=== PATIENT | male | born 1950 | race Caucasian/White ===

== ENCOUNTER → 2018-07-27 09:22 | Outpatient (CLI) | payer MEDICARE, OTHER, SELFPAY ==
[2018-07-27 12:21] LABS: Hematocrit 43.9 % (40-54); Hemoglobin 15.2 g/dl (13.0-16.5); Mean Corp Hgb Conc 34.6 g/gl (32-36); Mean Corpuscular Volume 83.8 fL (80-94); Platelet Count 244 K/mm3 (150-450); RBC Distribution Width CV 12.9 % (11.6-14.6); RBC Distribution Width SD 39.4 fl (35.1-43.9); Red Blood Count 5.24 M/mm3 (4.6-6.2); White Blood Count 5.1 K/mm3 (4.4-11.0)
[2018-07-27 12:51] LABS: Anion Gap 9 (5-15); BUN 13 mg/dL (7-18); BUN/Creat Ratio 13.2 RATIO (10-20); Calcium,Total 8.9 mg/dL (8.5-10.1); Chloride 107 mmol/L (98-107); Cholesterol 186 mg/dL (200); Creatinine, Serum 0.99 mg/dL (0.70-1.30); EST Glomerular Filtration Rate 80 mL/min (>60); Est Glom Filt Rate - Afr Amer 97 mL/min (>60); Glucose 85 mg/dL (74-106); High Density Lipoprotein 59 mg/dL; Sodium Level 138 mmol/L (136-145); Triglycerides 109 mg/dL; Very Low Density Lipoprotein 22 mg/dL (5-40)
[2018-07-27 15:02] LABS: Basophil% 0.2 % (0-1); Eosinophils% 1.2 % (0-5); Lymphocyte % 36.2 % (19-41); Neutrophil % 54.2 % (47-70)
[2018-07-27 15:03] LABS: Absolute Lymphocyte Count 1.85 X10^3/ul (0.83-4.51); Absolute Neutrophil Count 2.8 X10^3/uL (2.0-7.7); Basophil# 0.01 X10^3/uL; Eosinophil# 0.06 X10^3/uL; Lymphocyte # 1.85 X10^3/ul (4.0); Monocyte# 0.41 X10^3/uL; POSITIVE COUNT NO; POSITIVE DIFFERENTIAL NO; POSITIVE MORPHOLOGY NO
--- OUTSIDE RECORDS SUMMARY | 2018-09-30 23:04 | XMS RPT_ITS ---
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 / Z80.0(ICD-10) 04/20/2018 Working Otitis media, NA Active [facility] diagnosis unspecified, [facility] unspecified ear / H66.90(ICD-10) 09/14/2017 Admitting Unknown / GRACE RAYO Active [facility] diagnosis UNK(Unknown) [facility] 09/14/2017 Working Unknown / GRACE RAYO Active [facility] diagnosis UNK(Unknown) [facility] PROCEDURES PROCEDURES No Procedure Records FoundRESULTS RESULTS PSA,TOTAL - ANNUAL Collected: 08/01/2018 Status: F Source: [place] SCREEN 9:53 AM [facility] REPOSITORY TYPE CODE TESTS RESULT OUT OF REFERENCE UNITS RANGE LAB L501.9910 0.00-4.00 ng/mL High PSA,TOT 4.88 SCREEN Result Comment: This test was performed using the TPSA assay method for the eKonnekt chemistry system. Values obtained with different assay methods cannot be used interchangably. When changing PSA assays in the course of monitoring a patient, additional sequential testing should be carried out to confirm baseline values. Performed By: #### L501.9910 #### [facility] [address] [place], [place], [id number] CBC-COMPLETE BLOOD CNT Collected: 07/27/2018 Status: F Source: NINA NO DIFF 9:27 AM [facility] REPOSITORY TYPE CODE TESTS RESULT OUT OF RANGE REFERENCE UNITS LAB L100.1000 4.4-11.0 K/mm3 Normal WBC 5.1 LAB L100.1200 4.6-6.2 M/mm3 Normal RBC 5.24 LAB L100.1300 13.0-16.5 g/dl Normal HGB 15.2 LAB L100.1400 40-54 % Normal HCT 43.9 LAB L100.1500 80-94 fL Normal MCV 83.8 LAB L100.1600 27.0-32.0 pg Normal MCH 29.0 LAB L100.1700 32-36 g/gl Normal MCHC 34.6 LAB L100.1810 11.6-14.6 % Normal RDW CV 12.9 LAB L100.1820 35.1-43.9 fl Normal RDW SD 39.4 LAB L100.1900 150-450 K/mm3 Normal PLT 244 LAB L100.2000 6.2-12.0 fl Normal MPV 10.0 Performed By: #### L100.0500, L500.2500, L500.4100 #### [facility] [address] [place], [place], [id number] BASIC METABOLIC Collected: 07/27/2018 Status: F Source: NINA PROFILE (BMP) 9:27 AM [facility] REPOSITORY TYPE CODE TESTS RESULT OUT OF RANGE REFERENCE UNITS LAB L501.0100 74-106 mg/dL Normal GLU 85 Result Comment: Please note revised GLUCOSE reference range effective 2017. LAB L501.1000 7-18 mg/dL Normal BUN 13 LAB L501.1100 0.70-1.30 mg/dL Normal CREAT,SERUM 0.99 Result Comment: The validity of the calculated GFR AND GFRAA in patients over 70 years has not been determined. Clinical correlation is essential. LAB L501.1110 >60 mL/min Normal EST GFR 80 Result Comment: Non- GFR Calc LAB L501.1115 >60 mL/min Normal EST GFR - AA 97 Result Comment: GFR Calc LAB L501.1300 10-20 RATIO Normal BUN/CRE 13.2 LAB L501.2200 8.5-10.1 mg/dL CA Normal 8.9 LAB L501.5300 136-145 mmol/L NA Normal 138 LAB L501.5600 3.5-5.1 mmol/L K Normal 4.0 LAB L501.5900 98-107 mmol/L CL Normal 107 LAB L501.6100 21.0-32.0 mmol/L Normal CO2 22.0 LAB L501.6200 5-15 Normal GAP 9 Performed By: #### L100.0500, L500.2500, L500.4100 #### [facility] [address] [place], [address] LIPID PROFILE Collected: 07/27/2018 Status: F Source: [place] 9:27 AM [facility] REPOSITORY TYPE CODE TESTS RESULT OUT OF RANGE REFERENCE UNITS LAB L501.4900 200 mg/dL Normal CHOL 186 Result Comment: <200 mg/dL Desirable 200-240 mg/dL Borderline >240 mg/dL High Risk LAB L501.5000 mg/dL Normal TRIG 109 Result Comment: The drugs N-Acetylcysteine and Metamizole may falsely depress this assay. Serum Triglycerides Reference Interval Normal <150 mg/dL Borderline high 150 - 199 mg/dL High 200 - 499 mg/dL Very High > or = 500 mg/dL LAB L501.6400 mg/dL Normal HDL 59 Result Comment: The drugs N-Acetylcysteine and Metamizole may falsely depress this assay. Reference Range HDL <40 mg/dL Low HDL Cholesterol HDL >or= 60 mg/dL High HDL Cholesterol LAB L501.6500 0-130 mg/dL Normal LDL 105 LAB L501.6600 5-40 mg/dL Normal VLDL 22 Performed By: #### L100.0500, L500.2500, L500.4100 #### [facility] [address] [place], [address] CBC W/DIFF, AUTOMATED Collected: 07/27/2018 Status: F Source: NINA 9:27 AM [facility] REPOSITORY Order Comment: NEEDS CBCD NOT JUST CBC TYPE CODE TESTS RESULT OUT OF RANGE REFERENCE UNITS LAB L100.1000 4.4-11.0 K/mm3 Normal WBC 5.1 LAB L100.1200 4.6-6.2 M/mm3 Normal RBC 5.24 LAB L100.1300 13.0-16.5 g/dl Normal HGB 15.2 LAB L100.1400 40-54 % Normal HCT 43.9 LAB L100.1500 80-94 fL Normal MCV 83.8 LAB L100.1600 27.0-32.0 pg Normal MCH 29.0 LAB L100.1700 32-36 g/gl Normal MCHC 34.6 LAB L100.1810 11.6-14.6 % Normal RDW CV 12.9 LAB L100.1820 35.1-43.9 fl Normal RDW SD 39.4 LAB L100.1900 150-450 K/mm3 Normal PLT 244 LAB L100.2000 6.2-12.0 fl Normal MPV 10.0 LAB L100.2100 47-70 % Normal NEUT% 54.2 LAB L100.2200 19-41 % Normal LY% 36.2 LAB L100.2300 0-10 % Normal MONO% 8.0 LAB L100.2400 0-5 % Normal EO% 1.2 LAB L100.2500 0-1 % Normal BASO% 0.2 LAB L100.2550 0.0-0.9 % Normal IM GRAN % 0.200 Result Comment: IG% - Immature Granulocytes (promyelocytes, myelocytes and metamyelocytes) > 1% indicates that a LEFT SHIFT is Present. LAB L100.2620 2.0-7.7 X10 3/uL Normal Absolute Neut 2.8 LAB L100.2720 0.83-4.51 X10 3/ul Normal Absolute Lymph 1.85 Performed By: #### L100.0100 #### [facility] [address] [place], [address] CT CHEST WO CONTRAST Observed: 09/14/2017 Status: F Source: HUMILITY OF 2:16 PM [facility] Reading location: 200 HISTORY: Right lung nodule. CT CHEST: TECHNIQUE: Serial axial images through the thorax were obtained without the use of IV contrast. Reformatted sagittal and coronal images were obtained. One or more of the following dose reduction techniques were used: Automated exposure control. Adjustment of the mA and/or kV according to patient size. Use of iterative reconstruction technique. FINDINGS: The lungs are hyperinflated. No suspicious pulmonary mass is noted. There is a benign calcified granuloma seen within the right middle lobe measuring 8 mm. A smaller benign calcified granuloma is also seen within the right middle lobe measuring 5 mm x 3 mm. There is no pleural thickening or pleural effusion. The thoracic aorta is normal in caliber. There is no pericardial effusion. No pathological mediastinal or hilar lymphadenopathy is identified. Images through the upper abdomen are unremarkable. IMPRESSION: 1. The nodule noted in the right lung on the patient's prior chest x-ray of 07/29/2017 represents a benign 8 mm calcified granuloma within the right middle lobe. A smaller 5 mm calcified granuloma is also noted within the right middle lobe. 2. There are no findings of pneumonia or suspicious mass. Interpreted by: Brandon Freitas MD Signed by: Brandon Freitas MD 09/14/17 Final result ALLERGIES ALLERGIES No Allergies Records FoundENCOUNTERS ENCOUNTERS ADMIT/DISCHARGE ACCOUNT NUMBER ADMITTING ENCOUNTER LOCATION SOURCE CLASS 08/01/2018 [id number] [facility] ding:LAB.FUT Repository URE 07/27/2018 [id number] [facility] ding:MTLAB Repository 04/20/2018/04/20/20 [id number] Emergency Building:[facility] 18 DRoom: [place] [address]Bed: 04 [facility] 09/14/2017/09/15/19 [id number] GRACE RAYO [facility]ility of 18 [facility] ng:CTS PAYERS PAYERS ENCOUNTER GUARANTOR PAYER SUBSCRIBER SOURCE 08/01/2018 NEO D Primary NEO D [place] [id number] Insurance:MEDICARE LEITCHDOB: Community CELESTIAL PART A [facility] [id number] Number: Repository [address]Lzo: 330 [id number] [phone] () Date:2018-07-27 08/01/2018 Secondary NEO D [place] Insurance:WPS LEITCHDOB: [facility] [id number] Hospital Number: Repository [id number] Date:6180-27-57[address] [address]VM: 08/01/2018 Tertiary NOT GIVENUNK [place] Insurance:SELF PAY [facility] Number: Effective Repository Date:2018-07-27 07/27/2018 NEO D Primary NEO D Nina [id number] Insurance:MEDICARE LEITCHDOB: Community CELESTIAL PART A [facility] [id number] Number: Repository [address]Zkd: 330 [id number] [phone] () Date:2018-07-27 07/27/2018 Secondary NEO D Nina Insurance:WPS LEITCHDOB: [facility] [id number] Hospital Number: Repository [id number] Date:6683-85-52LK [address] [address]UY: 07/27/2018 Tertiary NOT GIVENUNK Nina Insurance:SELF PAY [facility] Number: Effective Repository Date:2018-07-27 04/20/2018 NEO D Primary NEO D [facility] QUINTONASHLEYB: Insurance:MEDICAREPol LEITCHDOB: [facility] icy Number: [id number] CELESTIAL [id number] [address] [place], [place] Date:3589-53-59SP [place], [place] [address]Pfb: [phone], [place] [address]Vau: () [address]MD: () [phone] 04/20/2018 Secondary NEO Reyez [facility] Insurance:LAITH AL: [facility] Number: [id number] [address] Date:2018-04-20 [place], [place] [address]Xwd: () 09/14/2017 NEO Dereje Primary NEO Reyez [facility] WILLISB: Insurance:MEDICAREPol SERVANDO: [employer] icy Number: [id number] CELESTIAL [id number] [address] [place], [place] Date:0664-53-41Rmrk [place], [place] [address]Csg: [phone]) Name:[place] [id number] [phone] () 09/14/2017 Secondary NEO Reyez [facility] Insurance:MEDICARE( SERVANDO: [facility] N-HMO)[facility] [id number] icy Number: 2 [address] [id number] [place], [place] Date:8374-84-31Jgxs [id number] Name:S
== END ==
PROVIDERS: Family Provider Family Medicine; PCP Family Medicine; Referring Provider Family Medicine; Visit Provider Family Medicine
DX: I10 Essential (primary) hypertension (principal); E78.00 Pure hypercholesterolemia, unspecified; Z80.0 Family history of malignant neoplasm of digestive organs
CPT/HCPCS: 36415; 80048; 80061; 85025; 85027

== ENCOUNTER → 2018-08-01 09:43 | Outpatient (CLI) | payer MEDICARE, OTHER, SELFPAY ==
[2018-08-01 12:34] LABS: PSA,Total - Annual Screen 4.88 ng/mL (0.00-4.00)
--- OUTSIDE RECORDS SUMMARY | 2018-10-03 11:31 | XMS RPT_ITS ---
:1950 Author Organization OHIP Care Team Providers Name Role Phone GRACE RAYO Admitting Unavailable GRACE RAYO Attending Unavailable GRACE RAYO Referring Unavailable GRACE RAYO Primary Care Unavailable Grace Raoy Attending Unavailable Grace Rayo Referring Unavailable Grace Rayo Primary Care Unavailable Grace Rayo Attending Unavailable Grace Rayo Primary Care Unavailable Grace Rayo Referring Unavailable PROBLEMS PROBLEMS DATE TYPE CONDITION / CODE ATTENDING STATUS SOURCE 08/01/2018 Unknown Z80.0 - Family Grace Rayo Active [place] history of [facility] neoplasm of Repository digestive organs / [...] Status: F Source: NINA SCREEN 9:53 AM [facility] REPOSITORY TYPE CODE TESTS RESULT OUT OF REFERENCE UNITS RANGE LAB L501.9910 0.00-4.00 ng/mL High PSA,TOT 4.88 SCREEN Result Comment: This test was performed using the TPSA assay method for the [employer] chemistry system. Values obtained with different assay methods cannot be used interchangably. When changing PSA assays in the course of monitoring a patient, additional sequential testing should be carried out to confirm baseline values. Performed By: #### L501.9910 #### [facility] [address] [place], [place], [id number] CBC-COMPLETE BLOOD CNT Collected: 07/27/2018 Status: F Source: NINA NO DIFF 9:27 AM [facility] REPOSITORY TYPE CODE TESTS RESULT OUT OF [...] Performed By: #### L100.0500, L500.2500, L500.4100 #### [facility] [address] [place], [place], [address] BASIC METABOLIC Collected: 07/27/2018 Status: F Source: NINA PROFILE (BMP) 9:27 AM [facility] REPOSITORY TYPE CODE TESTS RESULT OUT OF [...] Performed By: #### L100.0500, L500.2500, L500.4100 #### [facility] [address] [place], [address] LIPID PROFILE Collected: 07/27/2018 Status: F Source: [place] 9:27 AM [facility] REPOSITORY TYPE CODE TESTS RESULT OUT OF [...] Performed By: #### L100.0500, L500.2500, L500.4100 #### [facility] [address], [address] CBC W/DIFF, AUTOMATED Collected: 07/27/2018 Status: F Source: NINA 9:27 AM [facility] REPOSITORY Order Comment: NEEDS CBCD NOT JUST [...] Lymph 1.85 Performed By: #### L100.0100 #### [facility] [address] [place], [address] CT CHEST WO CONTRAST Observed: 09/14/2017 Status: F Source: HUMILITY OF 2:16 PM [facility] Reading location: 200 HISTORY: Right lung nodule. [...] NUMBER ADMITTING ENCOUNTER LOCATION SOURCE CLASS 08/01/2018 [id number] [facility] ding:LAB.FUT Repository URE 07/27/2018 [id number] [facility] ding:MTLAB Repository 04/20/2018/04/20/20 [id number] Emergency Building:[facility] 18 DRoom: [place] [address]Bed: 04 [facility] 09/14/2017/09/15/19 [id number] GRACE RAYO [facility] Humility of 18 [facility] ng:CTS PAYERS PAYERS ENCOUNTER GUARANTOR PAYER SUBSCRIBER SOURCE 08/01/2018 NEO D Primary ENO D [place] [id number] Insurance:MEDICARE LEITCHDOB: Community CELESTIAL PART A [facility] [id number] Number: Repository [address]Seu: 330 [id number] [phone] () Date:2018-07-27 08/01/2018 Secondary NEO D [place] Insurance:WPS LEITCHDOB: [facility] [id number] Hospital Number: Repository [id number] Date:6912-74-90[address] [address]WE: 08/01/2018 Tertiary NOT GIVENUNK [place] Insurance:SELF PAY [facility] Number: Effective Repository Date:2018-07-27 07/27/2018 NEO D Primary NEO D Nina [id number] Insurance:MEDICARE LEITCHDOB: Community CELESTIAL PART A [facility] [id number] Number: Repository [address]Guu: 330 [id number] [phone] () Date:2018-07-27 07/27/2018 Secondary NEO D Nina Insurance:WPS LEITCHDOB: [facility] [id number] Hospital Number: Repository [id number] Date:8804-45-32[address] [address]QZ: 07/27/2018 Tertiary NOT GIVENUNK Nina Insurance:SELF PAY [facility] Number: Effective Repository Date:2018-07-27 04/20/2018 NEO D Primary NEO D [facility] QUINTONASHLEYB: Insurance:MEDICAREPol LEITCHDOB: [facility] icy Number: [id number] CELESTIAL [id number] [address] [place], [place] Date:1328-85-60KO [place], [place] [address]Esp: [phone], [place] [address]Pjf: () [address]FV: () [phone] 04/20/2018 Secondary NEO Reyez [facility] Insurance:LAITH AL: [facility]: [id number] [address] Date:2018-04-20 [place], [place] [address]Aia: () 09/14/2017 NEO Dereje Primary NEO Reyez [facility] WILLISB: Insurance:MEDICAREPol SERVANDO: [employer] icy Number: [id number] CELESTIAL [id number] [address] [place], [place] Date:3642-09-76Ekvr [place], [place] [address]Plx: ([phone]) Name:[place] [phone] () 09/14/2017 Secondary NEO Reyez [facility] Insurance:MEDICARE( SERVANDO: [facility] N-HMO)[facility] [id number] icy Number: 2 [address] [id number] [place], [place] Date:5836-93-38Wjfa [address] Name:S
== END ==
PROVIDERS: Family Provider Family Medicine; PCP Family Medicine; Referring Provider Family Medicine; Visit Provider Family Medicine
DX: Z12.5 Encounter for screening for malignant neoplasm of prostate (principal)
CPT/HCPCS: 36415; 84153; G0103

== ENCOUNTER → 2020-01-02 | Outpatient (CLI) | payer MEDICARE, OTHER, SELFPAY ==
[2020-01-02 12:38] LABS: Absolute Lymphocyte Count 1.92 X10^3/uL (0.83-4.51); Absolute Neutrophil Count 2.8 X10^3/uL (2.0-7.7); Basophil# 0.04 X10^3/uL; Basophil% 0.7 % (0-1); Eosinophil# 0.14 X10^3/uL; Eosinophils% 2.6 % (0-5); Hematocrit 43.1 % (40-54); Hemoglobin 14.6 g/dL (13.0-16.5); Lymphocyte # 1.92 X10^3/ul (4.0); Lymphocyte % 35.5 % (19-41); Mean Corp Hgb Conc 33.9 g/dL (32-36); Mean Corpuscular Hgb 29.6 pg (27.0-32.0); Mean Corpuscular Volume 87.2 fL (80-94); Mean Platelet Vol. 9.8 fl (6.2-12.0); Monocyte# 0.51 X10^3/uL; Monocyte% 9.4 % (0-10); NRBC Flagged by Analyzer 0 % (0-5); Neutrophil # 2.76 X10^3/uL (2.7-7.7); Neutrophil % 51.1 % (47-70); Platelet Count 266 K/mm3 (150-450); RBC Distribution Width CV 12.7 % (11.6-14.6); RBC Distribution Width SD 39.9 fl (35.1-43.9); Red Blood Count 4.94 M/mm3 (4.6-6.2); White Blood Count 5.4 K/mm3 (4.4-11.0)
[2020-01-02 13:10] LABS: ALB/GLOB Ratio 1.1 RATIO (0.9-2.4); AST(SGOT) 20 U/L (15-37); Alanine Aminotransfer ALT/SGPT 37 U/L (16-61); Albumin, Serum 3.6 g/dL (3.2-5.0); Alkaline Phosphatase 59 U/L (45-117); Anion Gap 6 (5-15); BUN 15 mg/dL (7-18); BUN/Creat Ratio 16.7 RATIO (10-20); Calcium,Total 8.7 mg/dL (8.5-10.1); Chloride 103 mmol/L (98-107); Cholesterol 204 mg/dL (200); EST Glomerular Filtration Rate 89 mL/min (>60); Est Glom Filt Rate - Afr Amer 108 mL/min (>60); Globulin 3.4 g/dL (2.2-4.2); Glucose 89 mg/dL (74-106); High Density Lipoprotein 64 mg/dL; Potassium 4.3 mmol/L (3.5-5.1); Sodium Level 137 mmol/L (136-145); Triglycerides 99 mg/dL; Very Low Density Lipoprotein 20 mg/dL (5-40)
== END | disposition home or self-care (01) ==
LOC: MTLAB 11:10
PROVIDERS: PCP Family Medicine; Referring Provider Family Medicine; Visit Provider Family Medicine
DX: E78.00 Pure hypercholesterolemia, unspecified (principal); I10 Essential (primary) hypertension
CPT/HCPCS: 36415; 80053; 80061; 85025

== ENCOUNTER → 2020-01-08 14:45 | Outpatient (CLI) | payer MEDICARE, OTHER, SELFPAY ==
[2020-01-08 18:21] LABS: PSA,Total- Diagnostic 3.67 ng/mL (0.0-4.0)
== END ==
PROVIDERS: PCP Family Medicine; Visit Provider Family Medicine
DX: R97.20 Elevated prostate specific antigen [PSA] (principal)
CPT/HCPCS: 36415; 84153

== ENCOUNTER → 2020-06-13 10:41 | Outpatient (CLI) | payer MEDICARE, OTHER, SELFPAY ==
[2020-06-13 13:11] LABS: PSA,Total- Diagnostic 3.23 ng/mL (0.0-4.0)
== END ==
PROVIDERS: PCP Family Medicine; Referring Provider Family Medicine; Visit Provider Family Medicine
DX: R97.20 Elevated prostate specific antigen [PSA] (principal)
CPT/HCPCS: 36415; 84153

== ENCOUNTER → 2021-01-09 10:03 | Outpatient (CLI) | payer MEDICARE, OTHER, SELFPAY ==
[2021-01-09 13:10] LABS: ALB/GLOB Ratio 1.1 RATIO (0.9-2.4); AST(SGOT) 21 U/L (15-37); Alanine Aminotransfer ALT/SGPT 36 U/L (16-61); Albumin, Serum 3.5 g/dL (3.2-5.0); Alkaline Phosphatase 67 U/L (45-117); Anion Gap 8 (5-15); BUN 15 mg/dL (7-18); BUN/Creat Ratio 15.2 RATIO (10-20); Calcium,Total 8.7 mg/dL (8.5-10.1); Chloride 104 mmol/L (98-107); Cholesterol 204 mg/dL (200); Creatinine, Serum 0.99 mg/dL (0.70-1.30); EST Glomerular Filtration Rate 80 mL/min (>60); Est Glom Filt Rate - Afr Amer 96 mL/min (>60); Globulin 3.1 g/dL (2.2-4.2); Glucose 90 mg/dL (74-106); High Density Lipoprotein 55 mg/dL; PSA,Total- Diagnostic 3.97 ng/mL (0.0-4.0); Potassium 4.2 mmol/L (3.5-5.1); Protein, Total 6.6 g/dL (6.4-8.2); Sodium Level 138 mmol/L (136-145); Triglycerides 128 mg/dL; Very Low Density Lipoprotein 26 mg/dL (5-40)
== END ==
PROVIDERS: PCP Family Medicine; Referring Provider Family Medicine; Visit Provider Family Medicine
DX: R97.20 Elevated prostate specific antigen [PSA] (principal); E78.00 Pure hypercholesterolemia, unspecified
CPT/HCPCS: 36415; 80053; 80061; 84153

== ENCOUNTER 2021-10-20 09:32 | Outpatient (CLI) | payer MEDICARE, OTHER, SELFPAY ==
[2021-10-20 10:59] LABS: Vitamin D,25 Hydroxy 37.7 ng/mL
[2021-10-20 11:00] LABS: ALB/GLOB Ratio 1.1 RATIO (0.9-2.4); AST(SGOT) 24 U/L (15-37); Alanine Aminotransfer ALT/SGPT 40 U/L (16-61); Albumin, Serum 3.7 g/dL (3.2-5.0); Alkaline Phosphatase 70 U/L (45-117); Anion Gap 6 (5-15); BUN 13 mg/dL (7-18); BUN/Creat Ratio 12.9 RATIO (10-20); Calcium,Total 9.2 mg/dL (8.5-10.1); Chloride 105 mmol/L (98-107); Cholesterol 214 mg/dL (200); Creatinine, Serum 1.01 mg/dL (0.70-1.30); EST Glomerular Filtration Rate 77 mL/min (>60); Est Glom Filt Rate - Afr Amer 94 mL/min (>60); Globulin 3.4 g/dL (2.2-4.2); Glucose 91 mg/dL (74-106); High Density Lipoprotein 60 mg/dL; PSA,Total- Diagnostic 3.47 ng/mL (0.0-4.0); Protein, Total 7.1 g/dL (6.4-8.2); Sodium Level 139 mmol/L (136-145); Triglycerides 137 mg/dL; Very Low Density Lipoprotein 27 mg/dL (5-40)
== END 2021-10-20 23:59 | disposition home or self-care (01) ==
LOC: MFPLAB 09:36
PROVIDERS: PCP Family Medicine; Referring Provider Family Medicine; Visit Provider Family Medicine
DX: I10 Essential (primary) hypertension (principal); N40.1 Benign prostatic hyperplasia with lower urinary tract symptoms; E55.9 Vitamin D deficiency, unspecified
CPT/HCPCS: 36415; 80053; 80061; 82306; 84153

== ENCOUNTER → 2022-04-23 | Outpatient (CLI) | payer MEDICARE, OTHER, SELFPAY ==
[2022-04-23 17:51] LABS: ALB/GLOB Ratio 1.2 RATIO (0.9-2.4); AST(SGOT) 37 U/L (15-37); Alanine Aminotransfer ALT/SGPT 39 U/L (16-61); Albumin, Serum 3.8 g/dL (3.2-5.0); Alkaline Phosphatase 58 U/L (45-117); Anion Gap 7 (5-15); BUN 19 mg/dL (7-18); BUN/Creat Ratio 18.1 RATIO (10-20); Calcium,Total 9.1 mg/dL (8.5-10.1); Chloride 105 mmol/L (98-107); Creatinine, Serum 1.05 mg/dL (0.70-1.30); EST Glomerular Filtration Rate 74 mL/min (>60); Est Glom Filt Rate - Afr Amer 89 mL/min (>60); Globulin 3.1 g/dL (2.2-4.2); Glucose 94 mg/dL (74-106); Potassium 4.3 mmol/L (3.5-5.1); Protein, Total 6.9 g/dL (6.4-8.2); Sodium Level 139 mmol/L (136-145)
== END | disposition home or self-care (01) ==
LOC: MFPLAB 11:35
PROVIDERS: PCP Family Medicine; Referring Provider Family Medicine; Visit Provider Family Medicine
DX: Z00.00 Encounter for general adult medical examination without abnormal findings (principal)
CPT/HCPCS: 36415; 80053